=== PATIENT | male | born 1975 | race African-American/Black ===

== ENCOUNTER 2017-03-15 21:33 | Inpatient (IN) | payer BC ==
[~2017-03-15] VITALS: Ht 175.3 cm; Wt 113.4 kg
--- NOTE | ~2017-03-15 | O ---
[facility] [place] [address] OPERATIVE REPORT Name: MARIO WALKER Room #: 402-P [facility] IN M.R.#: [id number] Admission: 03/15/17 Attend Phys: Justin Blakely MD Discharge: 03/17/17 Date of : 71 Report #: [id number] THIS REPORT FOR: //name// CC: [facility] physician/PCP Justin Blakely DATE OF SERVICE: 03/17/2017 OR is #4. SURGEON: Tahir Claudio MD [employer] SUPERVISOR: None. PREOPERATIVE DIAGNOSIS: Symptomatic left ureteral calculus. POSTOPERATIVE DIAGNOSIS: Symptomatic left ureteral calculus. PROCEDURE: Cystoscopy, left ureteroscopy with basket stone extraction and left 4.5 x 28 double-J ureteral stent placement. COMPLICATIONS: None. ANESTHETIC: General. ESTIMATED BLOOD LOSS: None. PROCEDURE DESCRIPTION: The patient was taken to the operating room and general anesthesia was induced. The patient was then prepped and draped in the usual sterile fashion in the dorsal lithotomy position. The meatus was entered with a rigid cystoscope. The anterior urethra was normal. The sphincter was normal. The prostatic urethra was entered and showed no evidence of obstruction. The bladder was then systematically examined and was completely normal. The ureteral orifices appeared orthotopic bilaterally. The left ureteral orifice was cannulated with a 0.035 sensor wire. There was immediate resistance within approximately the distal 2-3 cm of the ureter. I then advanced the wire passed what was expected to be the stone. I could not see any radiopaque stones on fluoroscopy. I then used an 02/16 ureteral access sheath to dilate the ureter up. I then removed the ureteral access sheath. Semirigid ureteroscopy was then performed. A stone was seen in the distal ureter. This was grasped and removed. I then examined the ureter all the way up to the ureteropelvic junction and no residual stone was seen. I then removed the ureteroscope. I then replaced the cystoscope and a 4.5 x 28 double-J ureteral stent was advanced over the wire. The dangle was left intact and the stent was deployed. Excellent curl was seen proximally and distally. The cystoscope was withdrawn. [facility] [address] [place] [address] OPERATIVE REPORT Name: MARIO WALKER Room #: 402-P [facility] IN [facility]#: [id number] Admission: 03/15/17 Attend Phys: Justin Blakely MD Discharge: 03/17/17 Date of : 71 Report #: [id number] The patient tolerated the procedure well. He was transferred to recovery in satisfactory condition. There were no immediate complications. By: [id number] Tahir Claudio MD /nt
[~2017-03-15 21:33] MED LIST: ACETAMINOPHEN-1 EAC1 PO; COZAAR 25 MG TA25 M1 PO; FLOMAX0.4 MG PO; GLUCOPHAGE XR500 MG PO; LANTUS100 UNIT/M SUBQ; NORVASC10 MG PO; ZOFRAN4 MG PO
[2017-03-15 21:34] VITALS: BP 148/94
[2017-03-15 22:30] LABS: URINE BILIRUBIN NEGATIVE (Negative); URINE BLOOD 3+ (Negative); URINE COLOR YELLOW; URINE GLUCOSE-RANDOM* 1+ (Negative); URINE KETONES TRACE (Negative); URINE LEUKOCYTES-REFLEX NEGATIVE (Negative); URINE PROTEIN (DIPSTICK) NEGATIVE (Negative); URINE SPECIFIC GRAVITY 1.015 (1.005-1.035); URINE UROBILINOGEN 0.2 E.U./dl (0.2-1.0)
[2017-03-15 22:32] LABS: ABSOLUTE NEUTROPHILS 8.3 thou/uL (1.4-8.2); BASOPHILS 0.3 % (0.0-2.0); HEMATOCRIT 42.8 % (42.0-52.0); HEMOGLOBIN 14.4 gm/dL (14.0-18.0); LYMPHOCYTES 16.8 % (24.0-44.0); MCHC 33.7 g/dL (28.0-37.0); MCV 89.1 fL (80.0-100.0); MONOCYTES 7.5 % (1.0-8.0); PLATELET COUNT 203 thou/uL (150-400); POLYS 74.4 % (36.0-66.0); RBC 4.81 mil/uL (4.50-6.00); RDW 12.7 % (10.5-14.5); WBC 11.2 thou/uL (4.0-11.0)
[2017-03-15 22:37] LABS: CASTS None Seen /LPF (None Seen); SQUAMOUS None Seen /LPF (0-3); URINE WBC-REFLEX None Seen /HPF (0-5)
[2017-03-15 22:38] LABS: CRYSTALS None Seen /LPF (None Seen); URINE RBC 3-10 Few /HPF (0-2)
[2017-03-15 22:39] LABS: MANUAL DIFF NO
[2017-03-15 22:44] LABS: CALCIUM 8.5 mg/dL (8.5-10.1); CREATININE 1.8 mg/dL (0.7-1.3); POTASSIUM 3.8 mmol/L (3.5-5.1)
[2017-03-15 23:34] VITALS: BP 171/68
[2017-03-15 23:46] VITALS: BP 147/88
[2017-03-15 23:58] LABS: LARGE PLATELETS OCCASIONAL
[2017-03-16 04:18] VITALS: BP 139/67
[2017-03-16 06:18] LABS: CALCIUM 8.5 mg/dL (8.5-10.1); CREATININE 1.8 mg/dL (0.7-1.3)
[2017-03-16 06:21] LABS: HEMATOCRIT 42.5 % (42.0-52.0); HEMOGLOBIN 14.2 gm/dL (14.0-18.0); MCH 29.8 pg (26.0-34.0); MCHC 33.4 g/dL (28.0-37.0); MCV 89.3 fL (80.0-100.0); RBC 4.77 mil/uL (4.50-6.00); RDW 12.5 % (10.5-14.5); WBC 10.3 thou/uL (4.0-11.0)
[2017-03-16 08:42] VITALS: BP 138/82
[2017-03-16 19:49] VITALS: BP 130/74
[2017-03-17] VITALS (9 sets, daily range): BP systolic 140–164; BP diastolic 60–114
[2017-03-17 06:36] LABS: HEMATOCRIT 40.7 % (42.0-52.0); HEMOGLOBIN 13.7 gm/dL (14.0-18.0); MCH 30.4 pg (26.0-34.0); MCHC 33.8 g/dL (28.0-37.0); MCV 89.8 fL (80.0-100.0); RBC 4.53 mil/uL (4.50-6.00); RDW 12.2 % (10.5-14.5)
[2017-03-17 06:55] LABS: CALCIUM 8.5 mg/dL (8.5-10.1); CREATININE 1.8 mg/dL (0.7-1.3)
[2017-03-17] MEDS ORDERED: BACTRIM 400-801 EACH PO (16:18)
[2017-03-17] MEDS ORDERED: HYDROCODONE-AP1 EAC6 PO (16:52)
== END 2017-03-17 17:42 | disposition home or self-care (01) | DRG 669 ==
LOC: ER 21:33 → EROBS 22:22 → 4N 22:22 → ENTRNSPT 03-17 17:37 → 4N 03-17 17:42
PROVIDERS: Hospitalist; Nurse Practitioner Family; Physician Assistant
PROC: 0TC78ZZ Extirpation of Matter from Left Ureter, Via Natural or Artificial Opening Endoscopic (ICD-10-PCS; principal; 2017-03-17)
PROC: 0T778DZ Dilation of Left Ureter with Intraluminal Device, Via Natural or Artificial Opening Endoscopic (ICD-10-PCS; 2017-03-17)
DX: N13.2 Hydronephrosis with renal and ureteral calculous obstruction (principal); N17.9 Acute kidney failure, unspecified; E11.9 Type 2 diabetes mellitus without complications; I10 Essential (primary) hypertension; E78.5 Hyperlipidemia, unspecified; Z79.899 Other long term (current) drug therapy; Z87.442 Personal history of urinary calculi; Z91.013 Allergy to seafood
CPT/HCPCS: 10790; 50010; 50101; 50164; 50478; 51516; 51776; 53650; 56674; 56815; 62110; 62900; 70005

== ENCOUNTER 2017-06-08 16:43 | Emergency (ER) | payer BC ==
[~2017-06-08] VITALS: Ht 175.3 cm; Wt 111.6 kg
[~2017-06-08 16:43] MED LIST changes: +BACTRIM 400-801 EACH PO; +HYDROCODONE-AP1 EAC6 PO
[2017-06-08 17:36] LABS: ABSOLUTE NEUTROPHILS 3.9 thou/uL (1.4-8.2); BASOPHILS 0.5 % (0.0-2.0); EOSINOPHILS 2.4 % (0.0-3.0); HEMATOCRIT 43.4 % (42.0-52.0); HEMOGLOBIN 14.6 gm/dL (14.0-18.0); LYMPHOCYTES 38.7 % (24.0-44.0); MCH 30.3 pg (26.0-34.0); MCHC 33.8 g/dL (28.0-37.0); MCV 89.8 fL (80.0-100.0); MONOCYTES 5.5 % (1.0-8.0); PLATELET COUNT 238 thou/uL (150-400); POLYS 52.9 % (36.0-66.0); RBC 4.83 mil/uL (4.50-6.00); RDW 12.9 % (10.5-14.5); WBC 7.4 thou/uL (4.0-11.0)
[2017-06-08 17:46] LABS: CALCIUM 8.8 mg/dL (8.5-10.1); CREATININE 1.6 mg/dL (0.7-1.3); POTASSIUM 3.8 mmol/L (3.5-5.1)
[2017-06-08] MEDS ORDERED: IBUPROFEN 600600 M1 PO (19:24)
[2017-06-08] MEDS ORDERED: FLOMAX0.4 MG PO (19:24)
[2017-06-08] MEDS ORDERED: NORCO 5-325 TA1 EACH PO (19:24)
[2017-06-08 20:49] VITALS: BP 128/83
== END 2017-06-08 20:50 | disposition home or self-care (01) ==
LOC: ER 16:43
PROVIDERS: Nurse Practitioner
DX: N20.0 Calculus of kidney (principal); I10 Essential (primary) hypertension; E11.9 Type 2 diabetes mellitus without complications; E78.5 Hyperlipidemia, unspecified; Z91.013 Allergy to seafood

== ENCOUNTER 2017-09-04 12:47 | Emergency (ER) | payer BC ==
[~2017-09-04] VITALS: Ht 175.3 cm; Wt 112.5 kg
[~2017-09-04 12:47] MED LIST changes: +IBUPROFEN 600600 M1 PO; +NORCO 5-325 TA1 EACH PO
[2017-09-04 13:31] LABS: URINE BILIRUBIN NEGATIVE (Negative); URINE BLOOD 3+ (Negative); URINE CLARITY CLOUDY; URINE COLOR RED; URINE GLUCOSE-RANDOM* TRACE (Negative); URINE KETONES NEGATIVE (Negative); URINE LEUKOCYTES-REFLEX NEGATIVE (Negative); URINE NITRITE-REFLEX NEGATIVE (Negative); URINE PROTEIN (DIPSTICK) 1+ (Negative); URINE UROBILINOGEN 0.2 E.U./dl (0.2-1.0)
[2017-09-04 13:37] LABS: CASTS None Seen /LPF (None Seen); CRYSTALS None Seen /LPF (None Seen); SQUAMOUS None Seen /LPF (0-3); URINE RBC >20 Many /HPF (0-2); URINE WBC-REFLEX 0-5 Rare /HPF (0-5)
[2017-09-04 14:40] LABS: ABSOLUTE NEUTROPHILS 3.6 thou/uL (1.4-8.2); BASOPHILS 0.6 % (0.0-2.0); EOSINOPHILS 2.3 % (0.0-3.0); HEMATOCRIT 46.8 % (42.0-52.0); HEMOGLOBIN 15.7 gm/dL (14.0-18.0); LYMPHOCYTES 47.5 % (24.0-44.0); MCH 30.2 pg (26.0-34.0); MCHC 33.7 g/dL (28.0-37.0); MCV 89.7 fL (80.0-100.0); MONOCYTES 6.5 % (1.0-8.0); PLATELET COUNT 210 thou/uL (150-400); POLYS 43.1 % (36.0-66.0); RBC 5.21 mil/uL (4.50-6.00); RDW 13.1 % (10.5-14.5); WBC 8.3 thou/uL (4.0-11.0)
[2017-09-04 15:23] LABS: CALCIUM 9.4 mg/dL (8.5-10.1); CREATININE 1.2 mg/dL (0.7-1.3); POTASSIUM 3.8 mmol/L (3.5-5.1)
[2017-09-04] MEDS ORDERED: HYDROCODONE-AP1 EAC6 PO (15:26)
[2017-09-04] MEDS ORDERED: FLOMAX0.4 MG PO (15:26)
[2017-09-04] MEDS ORDERED: ONDANSETRON HCL4 M2 PO (15:26)
== END 2017-09-04 15:41 | disposition home or self-care (01) ==
LOC: ER 12:47
PROVIDERS: Nurse Practitioner Family
DX: N20.0 Calculus of kidney (principal); I10 Essential (primary) hypertension; E11.9 Type 2 diabetes mellitus without complications; E78.5 Hyperlipidemia, unspecified; Z91.013 Allergy to seafood

== ENCOUNTER 2017-09-05 06:40 | Inpatient (IN) | payer BC ==
[~2017-09-05] VITALS: Ht 175.3 cm; Wt 109.3 kg
--- NOTE | ~2017-09-05 | O ---
[facility] [place] [address] OPERATIVE REPORT Name: MARIO WALKER Room #: 417-I ADM IN M.R.#: [id number] Admission: 09/05/17 Attend Phys: Carlos Williamson DO Discharge: Date of : 71 Report #: [id number] THIS REPORT FOR: //name// CC: Carlos Craig DATE OF SERVICE: 09/05/2017 PREOPERATIVE DIAGNOSIS: Left proximal ureteral stone with pain. POSTOPERATIVE DIAGNOSIS: Left proximal ureteral stone with pain. SURGEON: Alec Starr MD. VAULT MANAGER: None. ANESTHESIA: General. FLUIDS: Please see anesthesia notes. BLOOD LOSS: Minimal. COMPLICATIONS: None. POSTPROCEDURE STATUS: Stable. SPECIMEN: Urine for culture. FINDINGS: The patient had purulent looking urine once the Glidewire was placed. SURGERIES: 1. Cystoscopy. 2. Left retrograde pyelogram. 3. Left ureteral stent placement, 6 x 26 [place]. 4. Urine for culture. OPERATIVE NOTE IN DETAIL: After informed consent, the patient was brought to the operating room and placed in the dorsal lithotomy position. He was prepped and draped in sterile fashion, was given general endotracheal anesthesia as well as preoperative antibiotics. A equipment hire manager fluoroscopy film was performed and no radiopaque densities were noted. A 21-[place] scope with a 30-degree lens was carefully placed in the patient's meatus and glided into the bladder. The prostate was nonobstructing. The bladder was inspected and found to be free of tumor, stones or lesion. Both ureteral orifices were in their orthotopic position. The left ureteral orifice was cannulated with a 5-[place] open-ended catheter. Retrograde pyelogram was performed showing a normal caliber ureter up [facility] [address] [place] [address] OPERATIVE REPORT Name: MARIO WALKER Room #: 417-I [facility] IN M.R.#: [id number] Admission: 09/05/17 Attend Phys: Carlos Williamson DO Discharge: Date of : 71 Report #: [id number] to the mid ureter, at which point, no further contrast would travel. A sensor wire was placed through the open-ended catheter and up into the kidney on the left side. Once the sensor wire was in place, a large amount of purulent urine returned. A 6 x 26 [place] stent was advanced over the wire. A good curl was seen in the kidney on the left side. The stent was deployed and a good curl was seen in the bladder. A urine culture was then obtained. The bladder was drained. The patient was then awoken and transferred to the recovery room in stable condition. All counts were correct. There were no complications. The patient tolerated the procedure well. <ELECTRONICALLY SIGNED> By: Alec Starr MD 09/06/17 [id number] Alec Starr MD /nt
[~2017-09-05 06:40] MED LIST changes: +ONDANSETRON HCL4 M2 PO
[2017-09-05 06:49] VITALS: BP 173/103
[2017-09-05 07:24] LABS: ABSOLUTE NEUTROPHILS 3.6 thou/uL (1.4-8.2); BASOPHILS 0.4 % (0.0-2.0); EOSINOPHILS 1.4 % (0.0-3.0); HEMATOCRIT 43.7 % (42.0-52.0); HEMOGLOBIN 14.8 gm/dL (14.0-18.0); LYMPHOCYTES 40.1 % (24.0-44.0); MCH 30.4 pg (26.0-34.0); MCHC 33.9 g/dL (28.0-37.0); MCV 89.6 fL (80.0-100.0); PLATELET COUNT 194 thou/uL (150-400); POLYS 50.1 % (36.0-66.0); RBC 4.88 mil/uL (4.50-6.00); RDW 12.9 % (10.5-14.5); WBC 7.2 thou/uL (4.0-11.0)
[2017-09-05 07:28] LABS: CALCIUM 9.1 mg/dL (8.5-10.1); CREATININE 1.5 mg/dL (0.7-1.3); POTASSIUM 3.8 mmol/L (3.5-5.1)
[2017-09-05 08:03] VITALS: BP 152/83
[2017-09-05 08:26] VITALS: BP 157/79
[2017-09-05 08:32] LABS: URINE BILIRUBIN NEGATIVE (Negative); URINE BLOOD 3+ (Negative); URINE CLARITY CLEAR; URINE COLOR YELLOW; URINE GLUCOSE-RANDOM* 2+ (Negative); URINE KETONES NEGATIVE (Negative); URINE LEUKOCYTES-REFLEX NEGATIVE (Negative); URINE NITRITE-REFLEX NEGATIVE (Negative); URINE PROTEIN (DIPSTICK) 2+ (Negative); URINE UROBILINOGEN 0.2 E.U./dl (0.2-1.0)
[2017-09-05 08:42] LABS: BACTERIA-REFLEX None Seen /HPF (None Seen); CASTS None Seen /LPF (None Seen); SQUAMOUS 0-3 Few /LPF (0-3); URIC ACID CRYSTALS 0-3 Few /LPF (None Seen); URINE RBC >20 Many /HPF (0-2); URINE WBC-REFLEX 0-5 Rare /HPF (0-5)
[2017-09-05 16:16] VITALS: BP 157/79
[2017-09-05 17:37] VITALS: BP 147/79
[2017-09-05 20:00] VITALS: BP 145/73
[2017-09-06 05:00] VITALS: BP 158/96
[2017-09-06 07:20] VITALS: BP 123/62
[2017-09-06 09:00] VITALS: BP 123/62
[2017-09-06 14:46] LABS: CALCIUM 9.2 mg/dL (8.5-10.1); CREATININE 1.6 mg/dL (0.7-1.3); POTASSIUM 3.9 mmol/L (3.5-5.1)
[2017-09-06 16:26] VITALS: BP 123/62
[2017-09-06 16:51] VITALS: BP 123/62
== END 2017-09-06 17:13 | disposition home or self-care (01) | DRG 693 ==
LOC: ER 06:40 → EROBS 07:43 → 4E 08:32
PROVIDERS: Emergency Medicine; Hospitalist; Internal Medicine Geriatric Medicine
PROC: BT1F1ZZ Fluoroscopy of Left Kidney, Ureter and Bladder using Low Osmolar Contrast (ICD-10-PCS; principal; 2017-09-05)
PROC: 0T778DZ Dilation of Left Ureter with Intraluminal Device, Via Natural or Artificial Opening Endoscopic (ICD-10-PCS; principal; 2017-09-05)
DX: N20.1 Calculus of ureter (principal); N17.0 Acute kidney failure with tubular necrosis; I10 Essential (primary) hypertension; E11.9 Type 2 diabetes mellitus without complications; N40.0 Benign prostatic hyperplasia without lower urinary tract symptoms; E78.5 Hyperlipidemia, unspecified; Z79.84 Long term (current) use of oral hypoglycemic drugs; Z79.4 Long term (current) use of insulin; Z79.899 Other long term (current) drug therapy; Z91.013 Allergy to seafood
CPT/HCPCS: 10084; 50010; 50101; 50478; 51767; 56674; 62110; 62900; 70005

== ENCOUNTER 2019-05-08 09:41 | Emergency (ER) | payer BC ==
[~2019-05-08] VITALS: Ht 175.3 cm; Wt 113.4 kg
[2019-05-08 10:20] LABS: ABSOLUTE NEUTROPHILS 3.8 thou/uL (1.4-8.2); BASOPHILS 0.3 % (0.0-2.0); EOSINOPHILS 1.3 % (0.0-3.0); HEMOGLOBIN 13.7 gm/dL (14.0-18.0); LYMPHOCYTES 36.8 % (24.0-44.0); MCH 30.9 pg (26.0-34.0); MCHC 33.5 g/dL (28.0-37.0); MCV 92.5 fL (80.0-100.0); MONOCYTES 7.5 % (1.0-8.0); PLATELET COUNT 166 thou/uL (150-400); POLYS 54.1 % (36.0-66.0); RBC 4.43 mil/uL (4.50-6.00); RDW 13.1 % (10.5-14.5); WBC 7.1 thou/uL (4.0-11.0)
[2019-05-08 10:32] LABS: CALCIUM 8.6 mg/dL (8.5-10.1); CREATININE 1.4 mg/dL (0.7-1.3)
[2019-05-08 10:41] LABS: URINE BILIRUBIN NEGATIVE (Negative); URINE BLOOD 3+ (Negative); URINE CLARITY CLEAR; URINE GLUCOSE-RANDOM* NEGATIVE (Negative); URINE KETONES NEGATIVE (Negative); URINE LEUKOCYTES-REFLEX NEGATIVE (Negative); URINE NITRITE-REFLEX NEGATIVE (Negative); URINE PROTEIN (DIPSTICK) 1+ (Negative); URINE UROBILINOGEN 0.2 E.U./dl (0.2-1.0)
[2019-05-08 10:43] LABS: URINE COLOR PINK
[2019-05-08 11:51] LABS: CASTS None Seen /LPF (None Seen); CRYSTALS None Seen /LPF (None Seen); SQUAMOUS None Seen /LPF (0-3)
[2019-05-08 11:52] LABS: BACTERIA-REFLEX 1-9 Few /HPF (None Seen); URINE RBC 3-10 Few /HPF (0-2); URINE WBC-REFLEX 0-5 Rare /HPF (0-5)
[2019-05-08] MEDS ORDERED: ZOFRAN ODT4 MG PO (12:24)
[2019-05-08] MEDS ORDERED: NORCO 5-325 TA1 EAC1 PO (12:24)
[2019-05-08] MEDS ORDERED: FLOMAX0.4 MG PO (12:24)
[2019-05-08 12:36] VITALS: BP 168/92
== END 2019-05-08 12:37 | disposition home or self-care (01) ==
LOC: ER 09:41
PROVIDERS: Emergency Medicine
DX: N20.0 Calculus of kidney (principal); I10 Essential (primary) hypertension; E11.9 Type 2 diabetes mellitus without complications; E78.5 Hyperlipidemia, unspecified; Z87.442 Personal history of urinary calculi; Z79.4 Long term (current) use of insulin; Z91.013 Allergy to seafood